=== PATIENT | male | born 1985 | race Caucasian/White ===

== ENCOUNTER 2020-07-23 14:12 | Outpatient (REF) | payer OTHER, SELFPAY ==
[2020-07-23 23:05] LABS: Bilirubin Negative (Negative); Blood Trace-intact (Negative); Clarity Cloudy (Clear); Glucose Negative (Negative); Ketones Negative (Negative); Leukocyte Esterase Negative (Negative); Nitrite Negative (Negative); Specific Gravity 1.025 (1.005-1.025); Urobilinogen 0.2 EU/dL (Up TO 0.2); pH 5.5 (5-8)
[2020-07-23 23:23] LABS: Bacteria Negative HPF (Negative); Casts Negative LPF (Negative); Crystals Many Amorphous HPF (Negative); Epithelial Cells Negative HPF (Negative); Mucus Negative (Negative); RBC Negative HPF (0-2); WBC Negative HPF (0-5)
[2020-07-23 23:24] LABS: C & S Indicated? No
== END 2020-07-23 14:32 ==
LOC: LBN 14:12
PROVIDERS: PCP Emergency Medicine; Visit Provider Emergency Medicine
DX: R31.9 Hematuria, unspecified (principal)
CPT/HCPCS: 81003; 81015

== ENCOUNTER 2022-02-12 01:11 | Outpatient (CLI) | payer BC, SELFPAY ==
[2022-02-12 13:20] LABS: Anion Gap 8.2 mmol/L (3-11); BUN 18 mg/dL (7-18); CO2 29.8 mmol/L (21.0-32.0); CREATININE 0.9 mg/dL (0.70-1.30); Calcium 8.9 mg/dL (8.5-10.1); Calculated LDL 65 mg/dL (<100); Chloride 104 mmol/L (98-107); Cholesterol 132 mg/dL (<200); Glucose 81 mg/dL (74-106); HDL Cholesterol 52 mg/dL (40-60); Potassium 3.9 mmol/L (3.5-5.1); Sodium 142 mmol/L (136-145); Triglyceride 76 mg/dL (<150)
== END 2022-02-12 01:12 | disposition home or self-care (01) ==
LOC: LOS 01:11
PROVIDERS: PCP Nurse Practitioner Family; Visit Provider Nurse Practitioner Family
DX: Z00.00 Encounter for general adult medical examination without abnormal findings (principal); Z13.220 Encounter for screening for lipoid disorders
CPT/HCPCS: 36415; 80048; 80061

== ENCOUNTER 2022-10-18 09:03 | Outpatient (REF) | payer BC, SELFPAY | END 2022-10-18 09:04 | disposition home or self-care (01) | LOC: LBN 09:03 | PROVIDERS: PCP Nurse Practitioner Family; Visit Provider Nurse Practitioner Family | DX: J02.9 Acute pharyngitis, unspecified (principal) | CPT/HCPCS: 87070 ==

== ENCOUNTER 2024-02-24 09:01 | Outpatient (CLI) | payer MEDICAID, SELFPAY ==
[2024-02-24 12:21] LABS: Abs Immature Grans 0.01 10^3/uL (0.0-0.06); Absolute Basophil Count 0.06 10^3/uL (0.0-0.2); Absolute Eosinophil Count 0.11 10^3/uL (0.0-0.7); Absolute Lymphocyte Count 2.12 10^3/uL (1.2-3.4); Absolute Monocyte Count 0.38 10^3/uL (0.1-0.8); Absolute Neutrophil Count 2.85 10^3/uL (1.2-6.7); Basophils % 1.1 %; HCT 49.2 % (40.0-50.0); HGB 16.1 g/dL (13.5-17.5); Immature Grans % 0.2 %; Lymphocytes % 38.3 %; MCHC 32.7 % (32.0-36.0); MCV 92 fL (80-95); MPV 10.8 fL (8.0-11.0); Monocytes % 6.9 %; Neutrophils % 51.5 %; Platelet Count 201 10^3/uL (130-400); RBC 5.37 10^6/uL (4.36-5.78); RDW 12.4 % (11.8-14.1); RDW-SD 41.7 fL; WBC 5.53 10^3/uL (4.4-10.8)
[2024-02-24 12:54] LABS: Anion Gap 11.3 mmol/L (3-11); BUN 17 mg/dL (7-18); CO2 26.7 mmol/L (21.0-32.0); CREATININE 1.1 mg/dL (0.70-1.30); Calcium 9.2 mg/dL (8.5-10.1); Calculated LDL 53 mg/dL (<100); Chloride 104 mmol/L (98-107); Cholesterol 109 mg/dL (<200); Estimated GFR 88.12 (mL/min/1.73m2); Glucose 86 mg/dL (74-106); HDL Cholesterol 47 mg/dL (40-60); Potassium 3.8 mmol/L (3.5-5.1); Sodium 142 mmol/L (136-145); Triglyceride 46 mg/dL (<150)
[2024-02-24 21:26] LABS: HIV-1/2 Ag & Ab Screen Negative (Negative)
[2024-02-24 21:34] LABS: Hepatitis C Ab w Rflx HCV PCR Negative (Negative)
[2024-02-24 21:41] LABS: HBs Antibody, Quant 89.7 mIU/mL (See Note); Hep B Surface Ab Positive (See Note); Hepatitis B Core Antibody Negative (Negative); Hepatitis B Surface Antigen Negative (Negative)
== END 2024-02-24 09:02 | disposition home or self-care (01) ==
LOC: LOS 09:02
PROVIDERS: PCP Nurse Practitioner Family; Referring Provider Nurse Practitioner Family; Visit Provider Nurse Practitioner Family
DX: Z00.00 Encounter for general adult medical examination without abnormal findings (principal); Z11.59 Encounter for screening for other viral diseases; Z11.4 Encounter for screening for human immunodeficiency virus [HIV]; M54.6 Pain in thoracic spine
CPT/HCPCS: 36415; 80048; 80061; 80076; 86704; 86706; 86803; 87340; 87389; 85025

== ENCOUNTER → 2024-03-01 00:18 | Outpatient (CLI) | payer MEDICAID, SELFPAY ==
--- NOTE | 2024-03-01 08:21 | DI.RAD_ITS ---
Exam(s) XR THORACIC SPINE COMPLETE EXAM: XR THORACIC SPINE COMPLETE CLINICAL HISTORY: midline thoracic back pain, M54.6. TECHNIQUE: 2D digital imaging was performed of the thoracic spine. Four views were obtained. AP, s duncan's and lateral views were obtained. COMPARISON: No exams were available for comparison FINDINGS: BONES: There is no fracture or destructive lesion. The vertebral bodies and posterior elements are un remarkable. DISKS:Alignment is within normal limits. There are mild degenerative changes seen in the lower thorac ic and upper lumbar spine. SOFT TISSUE: Visualized lungs are clear. IMPRESSION: Minimal degenerative changes seen in the thoracic spine. No acute fractures or subluxations. DATA REPOSITORY: RADIATION DOSE DELIVERED:
== END ==
PROVIDERS: PCP Nurse Practitioner Family; Visit Provider Nurse Practitioner Family
DX: M54.6 Pain in thoracic spine (principal)
CPT/HCPCS: 72072

== ENCOUNTER 2025-06-11 02:25 | Outpatient (CLI) | payer MEDICAID, SELFPAY ==
--- NOTE | 2025-06-11 07:30 | DI.RAD_ITS ---
Exam(s) XR KNEE LT 3V AP,LAT,ARIEL EXAM: XR KNEE LT 3V AP,LAT,ARIEL CLINICAL HISTORY: Is a runner, Worsening LT KNEE pain,M25.562. TECHNIQUE: 2D digital imaging was performed. Three views. COMPARISON: No exams were available for comparison FINDINGS: BONES: No acute fracture is present. No bony destructive lesion is seen. JOINTS: The knee is normally aligned. No joint effusion is seen. Joint spaces are maintained. SOFT TISSUE: Normal. IMPRESSION: Normal radiographs of the left knee. DATA REPOSITORY: RADIATION DOSE DELIVERED:
== END 2025-06-11 02:45 ==
LOC: DI 02:25
PROVIDERS: PCP Nurse Practitioner Family; Visit Provider Nurse Practitioner Family
DX: M25.562 Pain in left knee (principal)
CPT/HCPCS: 73562